=== PATIENT | male | born 1995 | race Caucasian/White ===

== ENCOUNTER 2025-04-20 20:56 | Emergency (ER) | payer SELFPAY ==
[~2025-04-20] VITALS: Ht 177.8 cm; Wt 90.1 kg
[2025-04-20 21:03] VITALS: O2SAT 98
[2025-04-20] MEDS: KETOROLAC 15MG/ML VIAL IM ONE (22:30)
[2025-04-20 23:03] LABS: BASOPHILS % 0.6 % (0.0-2.0); EOSINOPHILS % 2.5 % (0.0-5.0); HEMATOCRIT. 45.5 % (42.0-52.0); HEMOGLOBIN. 15.0 g/dL (14.0-18.0); LYMPHOCYTES % 30.5 % (20.0-50.0); MEAN PLATELET VOLUME 7.6 fl (7.4-10.4); MONOCYTES % 8.4 % (2.0-8.0); NEUTROPHILS % 58.0 % (40.0-76.0); PLATELET 221 x1000/uL (130-400); RED BLOOD CELL COUNT 4.99 mill/uL (4.7-6.1); RED CELL DISTRIBUTION WIDTH 13.3 % (11.6-14.6)
[2025-04-20 23:19] LABS: CREATININE 1.2 mg/dL (0.6-1.3); UREA NITROGEN BLOOD 14 mg/dL (9-23)
[2025-04-20 23:20] LABS: TROPONIN I HIGH SENSITIVITY < 4 ng/L (3.0-53)
[2025-04-20 23:21] LABS: ASPARTATE AMINOTRANSFERASE 24 IU/L (<34); BILIRUBIN DIRECT < 0.1 mg/dL (<=3.0); BILIRUBIN TOTAL 0.4 mg/dL (0.1-1.0); PROTEIN TOTAL 7.5 g/dL (6.0-8.3)
[2025-04-21 00:33] VITALS: BP 112/74; PULSE 63; RESP 16; TEMP 36.8; O2SAT 98
== END 2025-04-21 00:40 | disposition home or self-care (01) ==
LOC: ER 20:56
DX: R07.9 Chest pain, unspecified (principal); R06.02 Shortness of breath; Z90.49 Acquired absence of other specified parts of digestive tract
CPT/HCPCS: 80076; 80048; 83880; 85025; 84484; 36415; 71045; 93005; 99285; Z7610; J1885